=== PATIENT | female | born 1985 | race Caucasian/White ===

== ENCOUNTER 2016-10-24 13:26 | Emergency (ER) | payer MEDICAID ==
[~2016-10-24] VITALS: Ht 162.6 cm; Wt 54.4 kg
[2016-10-24] MEDS ORDERED: IBUPROFEN 600 MG TABLET PO ONE (14:45)
[2016-10-24] MEDS ORDERED: TRAMADOL HCL 50 MG TABLET PO ONE (14:45)
--- NOTE | 2016-10-24 15:29 | NUR ---
Patient moved to 4A per patient's request- done.
--- NOTE | 2016-10-24 16:02 | NUR ---
Crutches dispensed. Pt instructed on proper use of crutches. Patient able to demonstrate correct use of crutches. Patient is ambulatory with slow steady gait. Patient discharged to home in stable conditon. Written and verbal after care instructions given to patient and male significant other. Patient and family verbalized understanding of instructions.
== END 2016-10-24 16:05 | disposition home or self-care (01) ==
LOC: ER 13:29
DX: S86.911A Strain of unspecified muscle(s) and tendon(s) at lower leg level, right leg, initial encounter (principal); S80.12XA Contusion of left lower leg, initial encounter; W23.0XXA Caught, crushed, jammed, or pinched between moving objects, initial encounter; Y93.89 Activity, other specified; Y92.413 State road as the place of occurrence of the external cause; Y99.9 Unspecified external cause status
CPT/HCPCS: 73590; 93971; 99284; A4663

== ENCOUNTER 2017-11-11 15:00 | Emergency (ER) | payer MEDICAID, BC ==
[~2017-11-11] VITALS: Ht 162.6 cm; Wt 54.4 kg
[2017-11-11] MEDS ORDERED: IV NORMAL SALINE 1000 ML BAG IV ONE (15:30)
[2017-11-11] MEDS ORDERED: ONDANSETRON 4 MG/2 ML VIAL IV ONE (15:30)
[2017-11-11] MEDS ORDERED: MORPHINE SULFATE 2 MG/1 ML DISP.SYRIN IV ONE (15:30)
[2017-11-11] MEDS ORDERED: MORPHINE SULFATE 4 MG/1 ML DISP.SYRIN ONE (15:32)
[2017-11-11] MEDS ORDERED: ONDANSETRON 4 MG/2 ML VIAL ONE (15:32)
--- NOTE | 2017-11-11 15:42 | NUR ---
IV PLACED, MEDS ADMIN,1KL 0.9BNS INFUSING, MEDS ADMINISTERED, PT POSITIONED FOR COMFORT.
--- NOTE | 2017-11-11 16:38 | NUR ---
PT RESTING,POSITIONED FOR COMFORT. AWAITING FOR [facility] TECH
--- NOTE | 2017-11-11 18:07 | NUR ---
PETRONA AUGUST AT THE BEDSIDE.
--- NOTE | 2017-11-11 18:57 | NUR ---
MSE COMPLETED, IV D/C'D INTACT, PT D/C'D HOME, ACI/RX X1 GIVEN, PT GOT DRESSED AND AMBULATED W/O DIFF.
[2017-11-11 18:58] VITALS: BP 141/78
== END 2017-11-11 19:00 | disposition home or self-care (01) ==
LOC: ER 15:00
DX: O03.9 Complete or unspecified spontaneous abortion without complication (principal)
CPT/HCPCS: 36415; 76856; A4663; J2270; J2405; J7030